=== PATIENT | female | born 1990 | race Caucasian/White ===

== ENCOUNTER 2018-04-20 10:48 | Emergency (ER) | END 2018-04-20 10:59 | disposition home or self-care (01) ==

== ENCOUNTER 2019-03-17 09:35 | Emergency (ER) | payer MEDICAID ==
[~2019-03-17] VITALS: Wt 50.4 kg
[~2019-03-17 09:35] MED LIST: AZIT250T PO; CEPH-443 PO; D-ME473S2 PO; PSEU30TA38 PO
[2019-03-17 09:41] VITALS: BP 100/59; PULSE 56; RESP 18
[2019-03-17] MEDS ORDERED: KETOROLAC 30 MG INJ IM STA (10:26)
[2019-03-17] MEDS ORDERED: NAPR-985 PO (10:26)
[2019-03-17] MEDS ORDERED: LORA10TA3 PO (10:26)
--- NOTE | 2019-03-17 14:08 | ERD ---
ER Documentation Chief Complaint Chief Complaint FLU X 4 DAYS,COUGH,BODY ACHES HPI This is a 28-year-old woman with nasal congestion, rhinorrhea, bilateral eye tearing, and bilateral earaches, cough x4 to 5 days. She denies dysuria, no fevers or chills, no abdominal pain, no chest pain or shortness of breath, no vo miting or diarrhea ROS All systems reviewed and are negative except as per history of present illness. Medications Home Meds Active Scripts Loratadine* (Loratadine*) 10 Mg Tablet, 10 MG PO DAILY PRN for NASAL CONGESTION, #12 TAB Prov:KARINA NEWTON MD 03/17/19 Naproxen* (Naprosyn*) 500 Mg Tablet, 500 MG PO BID PRN for PAIN AND/OR INFLAMMATION, #30 TAB Prov:KARINA NEWTON MD 03/17/19 Pseudoephedrine Hcl* (Pseudoephedrine Hcl*) 30 Mg Tablet, 30 MG PO Q6 PRN for CONGESTION, #30 TAB Prov:JAZMÍN JACOME PA-C 04/20/18 Dextromethorphan Hb-Promethazine Hcl* (Promethazine DM* Syrup) 473 Ml Syrup, 5 ML PO Q6 PRN for COUGH, #100 ML Prov:JAZMÍN JACOME PA-C 04/20/18 Azithromycin* (Zithromax*) 250 Mg Tablet, 250 MG PO .ZPACK DIRECTED, #6 TAB TAKE 500 MG (2 TABS) THE FIRST DAY THEN 250 MG (1 TAB) DAYS 2-5 Prov:JAZMÍN JACOME PA-C 04/20/18 Cephalexin* (Keflex*) 500 Mg Capsule, 500 MG PO QID for 7 Days, CAP Prov:GERARDO ABDULLAHI PA-C 05/20/16 Allergies Allergies: Coded Allergies: No Known Allergy (Unverified , 05/20/16) PMhx/Soc History of Surgery: Yes (c section ) Anesthesia Reaction: No Hx Neurological Disorder: No Hx Respiratory Disorders: No Hx Cardiac Disorders: No Hx Psychiatric Problems: No Hx Miscellaneous Medical Probl: No Hx Alcohol Use: No Hx Substance Use: No Hx Tobacco Use: No Physical Exam Vitals Vital Signs Date Temp Pulse Resp B/P (MAP) Pulse Ox O2 O2 Flow FiO2 Time Delivery Rate 03/17/19 98.3 56 18 100/59 99 09:41 (73) Physical Exam GENERAL: Well-developed, well-nourished, well-hydrated, in no apparent distress, looks nontoxic in appearance HEENT: Bilateral nasal congestion and rhinorrhea, conjunctival injection bilaterally with increased epiphora, no purulent discharge NEURO: Alert and oriented 3, cranial nerves II through XII intact bilaterally, pupils equal round reactive to light, no focal deficits or facial asymmetry, sensation intact distally Strength 5/5 in upper and lower extremities bilaterally CARDIAC: Regular rate and rhythm, no murmurs rubs or gallops LUNGS: Clear bilaterally no wheezing crackles or stridor SKIN: Warm and dry to touch, no abrasions, contusions, or hematomas, no lacerations, no ecchymosis, no target lesions, and without ulcers EXTREMITIES: No clubbing cyanosis or edema, calves are bilaterally symmetrical, no Homans sign, no popliteal cord sign. Distal pulses equal and bilateral PSYCH: Normal affect without agitation or irritability Results 24 hrs Laboratory Tests Test 03/17/19 10:36 POC Beta HCG, Qualitative NEGATIVE Current Medications Medications Dose Sig/Elie Start Time Status Last (Trade) Ordered Route PRN Stop Time Admin Dose Reason Admin Ketorolac 30 mg ONCE STAT 03/17/19 DC 03/17/19 Tromethamine IM 10:26 03/17/19 10:42 (Toradol) 10:27 Procedures/MDM I administered Toradol 30 mg IM x1. Differential diagnoses considered, included but not limited to acute coronary syndrome, pulmonary embolism, aortic dissection, abdominal aortic aneurysm, sepsis, stroke, meningitis, encephalitis, pneumonia, appendicitis, cholecystitis, bowel obstruction, pyelonephritis, nephrolithiasis, cystitis, as well as metabolic, hematologic, and electrolyte abnormalities. As well as abscess, cellulitis, fractures, and dislocations. Patient feels much better at this time, and vital signs are normal, symptoms have improved. I did give strict instructions to return to the ED if symptoms continue or worsen, patient will otherwise follow-up with primary care physician. Patient understood instructions and agreed to plan. Disclaimer: Inadvertent spelling and grammatical errors are likely due to EHR/dictation software use and do not reflect on the overall quality of patient care. Also, please note that the electronic time recorded on this note does not necessarily reflect the actual time of the patient encounter. Departure Diagnosis: Primary Impression: Acute URI Ruled Out: Influenza-like symptoms Condition: Good Patient Instructions: Sinus Headaches, Uri, Viral, No Abx (Adult) KARINA NEWTON MD March 17, 2019 14:08
== END 2019-03-17 10:48 | disposition home or self-care (01) ==
LOC: FTE 09:35
DX: J06.9 Acute upper respiratory infection, unspecified (principal)
CPT/HCPCS: 81025; 96372; J1885; Z7502